=== PATIENT | female | born 1970 | race Two or more races ===

== ENCOUNTER → 2016-11-30 | Outpatient (CLI) | payer OTHER ==
--- NOTE | 2016-11-30 10:42 | CARD ---
APPROVED REPORT EXAM: Two-dimensional and M-mode echocardiogram with Doppler and color Doppler. Other Information Quality : Average Rhythm : NSR INDICATION Chest Pain 2D DIMENSIONS RVDd2.8 (2.9-3.5cm)Left Atrium(2D)3.2 (1.6-4.0cm) IVSd0.9 (0.7-1.1cm)Aortic Root(2D)2.4 (2.0-3.7cm) LVDd4.1 (3.9-5.9cm)LVOT Diameter2.0 (1.8-2.4cm) PWd0.9 (0.7-1.1cm)LVDs3.0 (2.5-4.0cm) FS (%) 27.3 %SV40.2 ml LVEF(%)53.6 (>50%) Aortic Valve AoV Peak Michael.138.1cm/sAoV VTI26.1cm AO Peak GR.7.6mmHgLVOT Peak Michael.92.1cm/s LVOT VTI 18.44cmAO Mean GR.4mmHg ENA (VMAX)2.76sl5VLL (VTI)2.23cm2 Mitral Valve MV E Jxunqkto36.2cm/sMV DECEL [id number] MV A Ekfayzsd65.5cm/sMV HCM24my E/A Ratio1.2MV A Jgxkopdw441ou MVA (PHT)3.52cm2 TDI E/Lateral E'6.4E/Medial E'6.0 Pulmonary Valve PV Peak Ivbnztbc689.3cm/sPV Peak Grad.5mmHg RVOT VTI20.4cm Tricuspid Valve TR P. Qhkdfaox772ur/sRAP WYCZNAIL7lcSr TR Peak Gr.58bfOvJHLR98zvHl Pulmonary Vein S1 Igirptlk25.3cm/sD2 Slokgrbw39.7cm/s LEFT VENTRICLE The left ventricle is normal size. There is normal left ventricular wall thickness. Left ventricle sy stolic function is normal. The Ejection Fraction is 50-55%. There is normal LV segmental wall motion. The left ventricular diastolic function and filling is normal for age. RIGHT VENTRICLE The right ventricle is normal size. The right ventricular systolic function is normal. ATRIA The left atrium size is normal. The right atrium size is normal. The interatrial septum is intact wit h no evidence for an atrial septal defect or patent foramen ovale as noted on 2-D or Doppler imaging. AORTIC VALVE The aortic valve is grossly normal. Doppler and Color Flow revealed no significant aortic regurgitati on. There is no significant aortic valvular stenosis. MITRAL VALVE The mitral valve leaflets are thickened. There is no mitral valve stenosis. Doppler and Color Flow re vealed no mitral valve regurgitation noted. TRICUSPID VALVE The tricuspid valve is normal in structure and function. Doppler and Color Flow revealed trace tricus pid regurgitation. The PA pressure was estimated at 21 mmHg. There is no tricuspid valve stenosis. PULMONIC VALVE The pulmonic valve is not well visualized. Doppler and Color Flow revealed no pulmonic valvular regur gitation. There is no pulmonic valvular stenosis. GREAT VESSELS The aortic root is normal in size. Normal pulmonary venous flow (Doppler). The IVC is normal in size and collapses >50% with inspiration. PERICARDIAL EFFUSION There is no evidence of significant pericardial effusion. Critical Notification Critical Value: No <Conclusion> Left ventricle systolic function is normal. The Ejection Fraction is 50-55%. There is normal LV segmental wall motion.
== END | disposition home or self-care (01) ==
LOC: ECHO 08:57
PROVIDERS: ATTEND Internal Medicine Cardiovascular Disease
DX: R07.9 Chest pain, unspecified (principal); I31.3 Pericardial effusion (noninflammatory)
CPT/HCPCS: 93306

== ENCOUNTER → 2019-12-12 | Outpatient (CLI) | payer OTHER ==
--- NOTE | 2019-12-12 14:30 | KCIC ---
CERVICAL SPINE WO CONTRAST History:Reason: TRAUMATIC INJURY OF HEAD/SPRAIN OF LIGAMENTS IN CERVICAL SPINE / Spl. Instructions: Severe headaches. RUE pain. / History: Recent fall with posterior head truama and whiplash. Neck pain. Technique: Multiplanar, multi sequential noncontrast MR imaging was performed of the cervical spine. Comparison: None Findings: Increased or signal within the right C6 facet and pedicle. Normal vertebral body height. No evidence of ligamentous injury. No pathologic signal abnormality within the cervical spinal cord. C2-C3: No canal or neuroforaminal narrowing. C3-C4: No canal or neuroforaminal narrowing. C4-C5: Small disc bulge. No canal or neuroforaminal narrowing. C5-C6: Small disc bulge. No canal or neuroforaminal narrowing. C6-C7: No canal or neuroforaminal narrowing. C7-T1: No canal or neuroforaminal narrowing. Impression: 1. Edema within the right C6 facet and pedicle, may relate to contusion or reactive edema. No evidence of ligamentous injury. Electronically signed by: Guicho Burton DO (12/12/2019 2:27 PM) KATELIN
== END ==
LOC: KCIC MRI 13:06
PROVIDERS: ATTEND Nurse Practitioner Family
DX: S13.4XXA Sprain of ligaments of cervical spine, initial encounter (principal); S09.90XS Unspecified injury of head, sequela; R29.818 Other symptoms and signs involving the nervous system; X58.XXXA Exposure to other specified factors, initial encounter; X58.XXXS Exposure to other specified factors, sequela; Y93.89 Activity, other specified; Y92.89 Other specified places as the place of occurrence of the external cause; Y99.8 Other external cause status
CPT/HCPCS: 72141

== ENCOUNTER → 2020-02-10 | Outpatient (CLI) | payer OTHER ==
[~2020-02-10] MED LIST: ALBU2.5V8 IH; ATOR20TA PO; EREN70AU SQ; FLUT1DIS IH; GADOTERATE 5 MMOL/10ML VIAL. IVP ONE; METF500T16 PO; SERT100T PO; SUMA100T3 PO
--- NOTE | 2020-02-10 18:30 | KCIC ---
MRI of the cervical spine without and with contrast 02/10/2020 CLINICAL HISTORY: Follow-up area of signal abnormality involving the right C6 facet and pedicle. TECHNIQUE: Unenhanced T1-weighted, T2-weighted and inversion recovery sagittal and gradient echo, T2- weighted and T1-weighted axial images of the cervical spine were obtained. After the intravenous admi nistration of 18 cc of Clariscan, enhanced T1-weighted sagittal and axial images of the cervical spin e were obtained. FINDINGS: Comparison study is dated 12/12/2019. Very mild lateral curvature of the cervical spine is seen convex to the right. There is straightening of the normal cervical lordosis. Degenerative signal changes are seen involving all of the disks of the cervical spine. Degenerative signal changes are seen within the marrow surrounding these discs. T he cervical spinal cord is normal in morphology, position, and signal characteristics. Increased signal intensity is seen on the T2-weighted and inversion recovery images involving the rig ht C6 facet and pedicle. This has decreased slightly since the previous examination. Faint enhancemen t is seen in this region. These findings are felt to reflect a recent contusion. No new area of abnor mal signal intensity is seen. Degenerative changes are seen involving the cervical disc spaces consisting of minimal to mild genera lized disc bulges and degenerative changes involving the uncovertebral and facet joints. These findin gs do not result in central spinal canal or neural foraminal stenosis. IMPRESSION: The area of increased signal intensity on the T2-weighted and inversion recovery images i nvolving the right C6 facet and pedicle has decreased slightly since the previous examination. Faint enhancement is seen in this region. These findings are felt to most likely reflect a recent contusion . No new area of abnormal signal intensity is seen. Electronically signed by: Ortega Ballesteros MD (02/10/2020 6:28 PM) [id number]
== END ==
LOC: KCIC MRI 12:18
PROVIDERS: ATTEND Psychiatry & Neurology Neurology with Special Qualifications in Child Neurology
DX: M47.812 Spondylosis without myelopathy or radiculopathy, cervical region (principal); M50.20 Other cervical disc displacement, unspecified cervical region; M43.8X2 Other specified deforming dorsopathies, cervical region
CPT/HCPCS: 72156; 82565; A9575